=== PATIENT | female | born 1990 | race African-American/Black ===

== ENCOUNTER 2018-08-17 14:39 | Emergency (ER) | payer SELFPAY ==
--- OUTSIDE RECORDS SUMMARY | 2018-08-17 14:42 | XMS REPORT ---
:1990 [facility] Address [address] [place] [address] Care Team Providers Name Role Phone Unavailable Unavailable Unavailable Payers Payer Name Policy Type Policy Number Effective Date Expiration Date Problems This patient has no known problems. Allergies, Adverse Reactions, Alerts Allergy Allergy Status Severity Reaction(s) Onset Inactive Treating Comments Name Type Date Date Clinician No Known DA Active U 2018-06 Allergies -02 00:00:0 0 No Known DA Active U 2018-01 Allergies -25 00:00:0 0 Medications This patient has no known medications.
[2018-08-17] MEDS ORDERED: ACETAMINOPHEN 500 MG TAB ONE (15:02)
[2018-08-17] MEDS ORDERED: METHYLPREDNISOLONE 125 MG INJ ONE (15:50)
[2018-08-17] MEDS ORDERED: IPRATROPIUM BROM 0.5MG/2.5ML ONE (15:50)
[2018-08-17] MEDS ORDERED: LEVALBUTEROL 1.25 MG/3 ML NEB ONE (15:50)
[2018-08-17] MEDS ORDERED: Magnesium Sulfate 2gm IVPB 2 G/50 ML BAG IV ONE (15:51)
[2018-08-17] MEDS ORDERED: NA CHLORIDE 0.9% 1,000 ML ONE (15:51)
[2018-08-17 16:22] LABS: Urine Blood NEGATIVE (NEG); Urine Glucose NEGATIVE (NEG); Urine Protein NEGATIVE (NEG); Urine pH 6.5 (5.0-7.0)
[2018-08-17 16:37] LABS: Absolute Lymphocytes (CBC) 0.6 K/uL (0.7-4.9); Absolute Monocytes 0.8 K/uL (0.1-1.3); Absolute Neutrophil 6.8 K/uL (1.8-8.0); Basophils % 0.3 % (0-1.3); Eosinophils % 0.2 % (0-4.4); Hematocrit 34.3 % (36.0-45.0); Lymphocytes % 7.3 % (15.3-44.8); MPV 9.3 fL (7.6-11.3); Monocytes % 9.4 % (3.3-12.3); RBC Red Blood Cell Count 4.32 M/uL (3.86-4.86)
--- NOTE | 2018-08-17 17:29 | RAD REPORT ---
EXAM DESCRIPTION: RAD - Chest Pa And Lat (2 Views) - 08/17/2018 5:22 pm CLINICAL HISTORY: Difficulty breathing, fever history COMPARISON: November 2016 TECHNIQUE: PA and lateral views of the chest were obtained. FINDINGS: The lungs are underinflated. This accentuates the lung markings potentially masking a mini mal interstitial edema or infiltrate. No focal mass or consolidation. Heart size is normal and central vasculature is within normal limits. No pleural effusion or pneu mothorax seen. No acute bony finding noted. No aortic abnormality. IMPRESSION: Shallow inspiration film shows no consolidation, mass or significant failure finding. Interstitial markings are prominent possibly due to the shallow inspiration. A mild interstitial prosper a or infiltrate remains possible.
--- NOTE | 2018-08-17 18:41 | EDPHYS ---
Physician Documentation [facility] Name: Michael Roper Age: 27 yrs Sex: Female : 1990 Arrival Date: 08/17/2018 Time: 14:43 Bed 25 Private MD: out of town, doctor ED Physician Onofre Traylor HPI: 08/17 15:28 This 27 yrs old Black Female presents to ER via Ambulatory with complaints of Breathing kb Difficulty. 15:28 The patient has shortness of breath at rest, and the patient has a history of asthma. kb Onset: The symptoms/episode began/occurred 2 day(s) ago. Duration: The symptoms are continuous. The patient's shortness of breath is aggravated by exertion, is alleviated by nothing. Associated signs and symptoms: Pertinent positives: non-productive cough, Pertinent negatives: chest pain, productive cough, diaphoresis, dizziness, fever, hemoptysis, loss of consciousness, nausea, numbness in extremities, visual changes, vomiting. Severity of symptoms: At their worst the symptoms were moderate in the emergency department the symptoms are unchanged. The patient has experienced similar episodes in the past, several times. The patient has not recently seen a physician. 15:29 Pt reports she started having a fever and shortness of breath 2 days ago. Reports kb history of asthma and PE (last month). 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 - Social history:: Smoking status: Patient/guardian denies using tobacco, Patient/guardian denies using alcohol. - Ebola Screening: : Patient negative for fever greater than or equal to 101.5 degrees Fahrenheit, and additional compatible Ebola Virus Disease symptoms Patient denies exposure to infectious person Patient denies travel to an Ebola-affected area in the 21 days before illness onset. ROS: 15:27 ENT: Negative for injury, pain, and discharge, Neck: Negative for injury, pain, and kb swelling, Cardiovascular: Negative for chest pain, palpitations, and edema, Abdomen/GI: Negative for abdominal pain, nausea, vomiting, diarrhea, and constipation, Back: Negative for injury and pain, MS/Extremity: Negative for injury and deformity, Skin: Negative for injury, rash, and discoloration, Neuro: Negative for headache, weakness, numbness, tingling, and seizure. 15:27 Constitutional: Positive for fever, Negative for body aches, chills, fatigue, malaise, poor PO intake, weight loss. 15:27 Respiratory: Positive for cough, dyspnea on exertion, shortness of breath, wheezing, Negative for hemoptysis, orthopnea, pleurisy. Exam: 15:27 Constitutional: This is a well developed, well nourished patient who is awake, alert, kb and in no acute distress. Head/Face: Normocephalic, atraumatic. ENT: Nares patent. No nasal discharge, no septal abnormalities noted. Tympanic membranes are normal and external auditory canals are clear. Oropharynx with no redness, swelling, or masses, exudates, or evidence of obstruction, uvula midline. Mucous membranes moist. Neck: Trachea midline, no thyromegaly or masses palpated, and no cervical lymphadenopathy. Supple, full range of motion without nuchal rigidity, or vertebral point tenderness. No Meningismus. Chest/axilla: Normal chest wall appearance and motion. Nontender with no deformity. No lesions are appreciated. Cardiovascular: Regular rate and rhythm with a normal S1 and S2. No gallops, murmurs, or rubs. Normal PMI, no JVD. No pulse deficits. Abdomen/GI: Soft, non-tender, with normal bowel sounds. No distension or tympany. No guarding or rebound. No evidence of tenderness throughout. Back: No spinal tenderness. No costovertebral tenderness. Full range of motion. Skin: Warm, dry with normal turgor. Normal color with no rashes, no lesions, and no evidence of cellulitis. MS/ Extremity: Pulses equal, no cyanosis. Neurovascular intact. Full, normal range of motion. Neuro: Awake and alert, GCS 15, oriented to person, place, time, and situation. Cranial nerves II-XII grossly intact. Motor strength 5/5 in all extremities. Sensory grossly intact. Cerebellar exam normal. Normal gait. 15:27 Respiratory: mild respiratory distress is noted, moderate respiratory distress is noted, Respirations: labored breathing, that is mild, that is moderate, Breath sounds: wheezing: expiratory that is mild, is scattered. Vital Signs: 14:47 BP 112 / 42; Pulse 117; Resp 22; Temp 101.8(O); Pulse Ox 95% on R/A; Weight 149.69 kg; hj Height 6 ft. 5 in. (195.58 cm); Pain 8/10; 16:07 BP 126 / 48; Pulse 102; Resp 20; Pulse Ox 100% on Nebulizer Mask; Pain 5/10; mg2 18:11 BP 114 / 54; Pulse 99; Resp 19; Temp 100(O); Pulse Ox 91% on R/A; mg2 19:02 BP 120 / 72; Pulse 90; Resp 18; Temp 100(O); Pulse Ox 95% on R/A; Pain 2/10; mg2 14:47 Body Mass Index 39.13 (149.69 kg, 195.58 cm) MDM: 15:16 Patient medically screened. kb 15:27 Data reviewed: vital signs, nurses notes. Data interpreted: Pulse oximetry: on room air kb is 95 %. Interpretation: normal. 18:37 Counseling: I had a detailed discussion with the patient and/or guardian regarding: the kb historical points, exam findings, and any diagnostic results supporting the discharge/admit diagnosis, lab results, radiology results, the need for outpatient follow up, a family practitioner, to return to the emergency department if symptoms worsen or persist or if there are any questions or concerns that arise at home. 08/17 15:09 Order name: Flu; Complete Time: 18:10 kb 08/17 15:25 Order name: CBC with Diff; Complete Time: 16:58 kb 08/17 15:25 Order name: Basic Metabolic Panel; Complete Time: 16:30 kb 08/17 15:25 Order name: Lactate; Complete Time: 16:35 kb 08/17 15:25 Order name: Procalcitonin; Complete Time: 16:58 kb 08/17 15:25 Order name: Blood Culture Adult (2) kb 08/17 15:09 Order name: Chest Pa And Lat (2 Views) XRAY; Complete Time: 17:30 kb 08/17 16:09 Order name: Urine Dipstick--Ancillary (enter results); Complete Time: 16:24 bd 08/17 16:38 Order name: Test, Urine; Complete Time: 17:07 EDMS 08/17 15:26 Order name: IV Start; Complete Time: 15:37 kb Administered Medications: 14:51 Drug: Tylenol 1000 mg Route: PO; hj 16:30 Follow up: Response: No adverse reaction; Marked relief of symptoms mg2 16:06 Drug: Magnesium Sulfate 2 grams Route: IVPB; Infused Over: 2 hrs; Site: left forearm; mg2 19:00 Follow up: Response: No adverse reaction; IV Status: Completed infusion mg2 16:06 Drug: SOLU-Medrol 125 mg Route: IVP; Site: left forearm; mg2 19:00 Follow up: Response: No adverse reaction; Marked relief of symptoms mg2 16:06 Drug: NS 0.9% 1000 ml Route: IV; Rate: 1000 ml; Site: left forearm; mg2 19:00 Follow up: Response: No adverse reaction; IV Status: Completed infusion mg2 16:06 Drug: AtroVENT Aerosol 0.5 mg Route: Inhalation; mg2 19:00 Follow up: Response: No adverse reaction; Marked relief of symptoms mg2 16:06 Drug: Xopenex (3) 1.25 mg Route: Inhalation; mg2 18:59 Follow up: Response: No adverse reaction mg2 18:48 Drug: Tamiflu 75 mg Route: PO; mg2 18:59 Follow up: Response: No adverse reaction; Medication administered at discharge. mg2 Disposition: 08/18 09:36 Co-signature as Attending Physician, Onofre Traylor MD I agree with the assessment and kdr plan of care. Disposition: 08/17/18 18:40 Discharged to Home. Impression: Influenza due to identified novel influenza A virus. - Condition is Stable. - Discharge Instructions: Influenza, Adult, [id number]. - Prescriptions for Tamiflu 75 mg Oral Capsule - take 1 capsule by ORAL route every 12 hours for 5 days; 10 capsule. Albuterol Sulfate 90 mcg/actuation - inhale 1-2 puff by INHALATION route every 4-6 hours; 1 Inhaler. - Medication Reconciliation Form, Thank You Letter, Antibiotic Education, Prescription Opioid Use form. - Follow up: Emergency Department; When: As needed; Reason: Worsening of condition. Follow up: Private Physician; When: 2 - 3 days; Reason: Recheck today's complaints, Continuance of care, Re-evaluation by your physician. Signatures: Dispatcher [employer] [facility] OmidDanyelAngie, OTR [employer] TRUCK DRIVER-C O[employer] TRUCK DRIVER-Ckb Onofre Traylor MD MD [facility] Rodrigo Leonard RN RN Eric Disla RN RN mg2 Corrections: (The following items were deleted from the chart) 08/17 17:54 16:06 TEST, SERUM+[id number].LAB.BRZ ordered. [facility] 17:54 16:37 Test Serum, Qualitat ordered. [facility] 18:04 17:55 Test, Urine ordered. [facility] 19:04 18:40 08/17/2018 18:40 Discharged to Home. Impression: Influenza due to identified mg2 novel influenza A virus. Condition is Stable. Forms are Medication Reconciliation Form, Thank You Letter, Antibiotic Education, Prescription Opioid Use. Follow up: Emergency Department; When: As needed; Reason: Worsening of condition. Follow up: Private Physician; When: 2 - 3 days; Reason: Recheck today's complaints, Continuance of care, Re-evaluation by your physician. kb
--- NOTE | 2018-08-17 18:41 | ER ---
Nurse's Notes [facility] Name: Michael Roper Age: 27 yrs Sex: Female : 1990 Arrival Date: 08/17/2018 Time: 14:43 Bed 25 Private MD: out of town, doctor Diagnosis: Influenza due to identified novel influenza A virus Presentation: 08/17 14:45 Presenting complaint: Patient states: cant breathe for 2 days now and i have asthma, hj reports fever and chills; reports hx of PE: albuterol taken today;. Transition of care: patient was not received from another setting of care. Onset of symptoms was August 17, 2018. Risk Assessment: Do you want to hurt yourself or someone else? Patient reports no desire to harm self or others. Initial Sepsis Screen: Does the patient meet any 2 criteria? RR > 20 per min. Temp <36.0*C (96.8*F)) or > 38.3*C (100.9*F). HR > 90 bpm. Yes Does the patient have a suspected source of infection? Yes: Productive cough/pneumonia. Care prior to arrival: None. 14:45 Method Of Arrival: Ambulatory 14:45 Acuity: FATEMEH 3 Triage Assessment: 14:47 General: Appears in no apparent distress. uncomfortable, Behavior is calm, cooperative, hj appropriate for age. Pain: Complains of pain in back, chest. Respiratory: Reports shortness of breath cough that is Onset: The symptoms/episode began/occurred 2 days, the patient has moderate shortness of breath. 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 - Social history:: Smoking status: Patient/guardian denies using tobacco, Patient/guardian denies using alcohol. - Ebola Screening: : Patient negative for fever greater than or equal to 101.5 degrees Fahrenheit, and additional compatible Ebola Virus Disease symptoms Patient denies exposure to infectious person Patient denies travel to an Ebola-affected area in the 21 days before illness onset. Screenin:07 Abuse screen: Denies threats or abuse. Denies injuries from another. Nutritional mg2 screening: No deficits noted. Tuberculosis screening: No symptoms or risk factors identified. Fall Risk IV access (20 points). Assessment: 16:21 General: Appears in no apparent distress. comfortable, Behavior is calm, cooperative. mg2 Pain: Complains of pain in back and chest Pain does not radiate. Pain currently is 4 out of 10 on a pain scale. Quality of pain is described as aching, Pain began gradually, 1 day ago. Is intermittent. Neuro: Level of Consciousness is awake, alert, obeys commands, Oriented to person, place, time, situation. Cardiovascular: Capillary refill < 3 seconds Patient's skin is warm and dry. Rhythm is regular. Respiratory: Airway is patent Respiratory effort is even, unlabored, Respiratory pattern is regular, symmetrical. GI: Reports nausea. : No signs and/or symptoms were reported regarding the genitourinary system. EENT: No signs and/or symptoms were reported regarding the EENT system. Derm: Skin is intact, is healthy with good turgor, Skin is pink, warm \T\ dry. normal. Musculoskeletal: No signs and/or symptoms reported regarding the musculoskeletal system. 17:11 Respiratory: Breath sounds with wheezes bilaterally. in mediastinum, right upper lobe mg2 and left upper lobe. 17:11 Reassessment: patient sent to xray. mg2 18:12 Reassessment: Patient appears in no apparent distress at this time. Patient and/or mg2 family updated on plan of care and expected duration. Pain level reassessed. Patient is alert, oriented x 3, equal unlabored respirations, skin warm/dry/pink. Vital Signs: 14:47 BP 112 / 42; Pulse 117; Resp 22; Temp 101.8(O); Pulse Ox 95% on R/A; Weight 149.69 kg; hj Height 6 ft. 5 in. (195.58 cm); Pain 8/10; 16:07 BP 126 / 48; Pulse 102; Resp 20; Pulse Ox 100% on Nebulizer Mask; Pain 5/10; mg2 18:11 BP 114 / 54; Pulse 99; Resp 19; Temp 100(O); Pulse Ox 91% on R/A; mg2 19:02 BP 120 / 72; Pulse 90; Resp 18; Temp 100(O); Pulse Ox 95% on R/A; Pain 2/10; mg2 14:47 Body Mass Index 39.13 (149.69 kg, 195.58 cm) ED Course: 14:43 Patient arrived in ED. mr 14:43 out of town, doctor is Private Physician. mr 14:46 Triage completed. hj 15:16 [facility]C [facility]. kb 15:16 Onofre Traylor MD is Attending Physician. kb 15:17 Eric Disla RN is Primary Nurse. mg2 16:07 No provider procedures requiring assistance completed. Inserted saline lock: 20 gauge mg2 in left forearm, using aseptic technique. Blood collected. 16:08 Patient has correct armband on for positive identification. wind energy mechanic on. Pulse mg2 ox on. NIBP on. Door closed. 16:23 Arm band placed on. mg2 17:21 Chest Pa And Lat (2 Views) XRAY In Process Unspecified. EDMS 19:01 IV discontinued, intact, bleeding controlled, No redness/swelling at site. Pressure mg2 dressing applied. Administered Medications: 14:51 Drug: Tylenol 1000 mg Route: PO; hj 16:30 Follow up: Response: No adverse reaction; Marked relief of symptoms mg2 16:06 Drug: Magnesium Sulfate 2 grams Route: IVPB; Infused Over: 2 hrs; Site: left forearm; mg2 19:00 Follow up: Response: No adverse reaction; IV Status: Completed infusion mg2 16:06 Drug: SOLU-Medrol 125 mg Route: IVP; Site: left forearm; mg2 19:00 Follow up: Response: No adverse reaction; Marked relief of symptoms mg2 16:06 Drug: NS 0.9% 1000 ml Route: IV; Rate: 1000 ml; Site: left forearm; mg2 19:00 Follow up: Response: No adverse reaction; IV Status: Completed infusion mg2 16:06 Drug: AtroVENT Aerosol 0.5 mg Route: Inhalation; mg2 19:00 Follow up: Response: No adverse reaction; Marked relief of symptoms mg2 16:06 Drug: Xopenex (3) 1.25 mg Route: Inhalation; mg2 18:59 Follow up: Response: No adverse reaction mg2 18:48 Drug: Tamiflu 75 mg Route: PO; mg2 18:59 Follow up: Response: No adverse reaction; Medication administered at discharge. mg2 Outcome: 18:40 Discharge ordered by . inocencia 19:03 Discharged to home ambulatory, with family. mg2 19:03 Condition: stable 19:03 Discharge instructions given to patient, family, Instructed on discharge instructions, follow up and referral plans. medication usage, Demonstrated understanding of instructions, follow-up care, medications, Prescriptions given X 2. 19:04 Patient left the ED. mg2 Signatures: Dispatcher [employer] EDMS Angie Anne, CRISTOBAL ENAMORADOP-Arlyn RooneyaSarah Henry, RN RN Eric Petty RN RN mg2 Corrections: (The following items were deleted from the chart) 14:50 14:47 Pulse 117bpm; Resp 22bpm; Pulse Ox 95% RA; Temp 101.8F Oral; 149.69 kg; Height 6 hj ft. 5 in.; BMI: 39.1; Pain 8/10; hj 14:56 14:45 Initial Sepsis Screen: Does the patient meet any 2 criteria? No. Patient's initial sepsis screen is negative. Does the patient have a suspected source of infection? No. Patient's initial sepsis screen is negative. hj
[2018-08-17] MEDS ORDERED: OSELTAMIVIR 75 MG CAP ONE (18:52)
== END 2018-08-17 19:04 | disposition home or self-care (01) ==
LOC: ER 14:39
DX: J10.1 Influenza due to other identified influenza virus with other respiratory manifestations (principal); J45.909 Unspecified asthma, uncomplicated; Z79.899 Other long term (current) drug therapy
CPT/HCPCS: 36415; 71046; 80048; 81003; 81025; 83605; 84145; 85025; 87040; 87804; 96365; 96366; 96375; 99285; J2930; J3475; J7030